=== PATIENT | female | born 1985 | race Caucasian/White ===

== ENCOUNTER 2016-11-30 16:08 | Emergency (ER) | payer MEDICAID ==
[~2016-11-30] VITALS: Ht 165.1 cm; Wt 60.0 kg
[~2016-11-30 16:08] MED LIST: CLIN1CAP5 PO; NAPR500 PO
[2016-11-30 16:09] VITALS: BP 139/82; PULSE 118; RESP 20; TEMP 99.4; O2SAT 98
[2016-11-30] MEDS ORDERED: PRED20 PO (16:21)
[2016-11-30] MEDS ORDERED: AZIT250T3 PO (16:21)
--- NOTE | 2016-11-30 16:26 | PD ---
HPI Chief Complaint: ENT Complaint Time Seen by Provider: 16:16 Travel History International Travel<30 days: No Contact w/Intl Traveler<30days: No Traveled to known affect area: No History of Present Illness HPI 31-year-old female presents emergency Department with several day history of upper respiratory type symptoms including headache, scratchy throat, and now loss of voice and cough with upper airway chest tightness. Patient states moderate cough but nonproductive. She denies history of wheezing or need for inhalers in the past. She states her daughter is sick with a cold as well, who may have given it to her. Throat does not really hurt but she cannot speak due to her loss of voice. He denies nausea, vomiting, or other constitutional symptoms. Vital signs show temperature of 99.8 orally. PFSH Past Medical History Depression: Yes Diminished Hearing: No ?: Not : 4 Para: 2 : 2 Social History Alcohol Use: Yes (SOCIALLY) Tobacco Use: Yes (5-6 CIGARETTES PER DAY) Substance Use: No Allergies-Medications (Allergen,Severity, Reaction): Coded Allergies: No Known Allergies (Verified , 11/30/16) Reported Meds & Prescriptions Reported Meds & Active Scripts Active Prednisone 20 Mg Tab 20 Mg PO DAILY 5 Days Azithromycin 250 Mg Tab 250 Mg PO DIRECTED Take 2 tabs (500 mg) on day 1 then 1 tab daily x 4 days. Clindamycin Hcl (Clindamycin HCl) 150 Mg Cap 2 Capl PO Q6HR 10 Days Naprosyn (Naproxen) 500 Mg Tab 500 Mg PO Q12HR PRN Review of Systems Except as stated in HPI: all other systems reviewed are Neg General / Constitutional: Positive: Fever, Chills Eyes: No: Visual changes HENT: Positive: Headaches, Sore Throat, Rhinitis (hoarseness), Rhinorrhea, Congestion, No: Vertigo, Lightheadedness, Nosebleed, Neck Stiffness, Neck Pain, Earache Cardiovascular: No: Chest Pain or Discomfort Respiratory: Positive: Cough, No: Shortness of Breath, Wheezing, Sneezing Gastrointestinal: No: Nausea, Vomiting, Diarrhea, Abdominal Pain Genitourinary: No: Dysuria Musculoskeletal: No: Pain Skin: No Rash Neurologic: No: Weakness Psychiatric: No: Depression Endocrine: No: Polydipsia Hematologic/Lymphatic: No: Easy Bruising Physical Exam Narrative GENERAL: Patient appears in no acute distress. SKIN: Warm and dry. Normal color. Normal turgor. No rash. HEAD: Atraumatic. Normocephalic. EYES: Pupils equal and round. No scleral icterus. No injection or drainage. ENT: No nasal bleeding or discharge. Mucous membranes pink and moist. TMs are clear bilaterally. Patient is clear rhinitis. Posterior pharynx appears somewhat injected with cobblestoning but without significant tonsillitis or exudate. Patient is extremely hoarse. NECK: Trachea midline. Supple nontender without significant lymphadenopathy. CARDIOVASCULAR: Regular rate and rhythm. RESPIRATORY: No accessory muscle use. Completely Clear to auscultation. Breath sounds equal bilaterally. MUSCULOSKELETAL: Extremities without clubbing, cyanosis, or edema. No obvious deformities. NEUROLOGICAL: Awake and alert. No obvious cranial nerve deficits. Motor grossly within normal limits. Five out of 5 muscle strength in the arms and legs. Normal speech. PSYCHIATRIC: Appropriate mood and affect; insight and judgment normal. Data Data Last Documented VS Vital Signs Date Time Temp Pulse Resp B/P (MAP) Pulse Ox O2 Delivery O2 Flow Rate FiO2 11/30/16 16:09 99.4 118 20 139/82 (101) 98 Room Air Orders Orders Ed Discharge Order (11/30/16 16:27) MDM Medical Decision Making Medical Screen Exam Complete: Yes Emergency Medical Condition: Yes Differential Diagnosis Upper respiratory infection. Bronchitis. Laryngitis. Pharyngitis. Narrative Course Patient is medically stable at time of exam. Patient will be treated with azithromycin 250 mg tabs, as directed. #6. Patient also given prednisone 20 mg daily for the next 5 days. Patient is encouraged to rest her voice, use ice chips, lots of fluids, and cough medicine of choice. Work note is given for tomorrow. Patient should follow up if symptoms do not improve or worsen next week. Diagnosis Primary Impression: Laryngitis, acute Additional Impression: Bronchitis Referrals: [facility] Primary Care Physician Patient Instructions: General Instructions, Laryngitis (ED) Additional Instructions: Patient will be treated with azithromycin 250 mg tabs, as directed. #6. Patient also given prednisone 20 mg daily for the next 5 days. Patient is encouraged to rest her voice, use ice chips, lots of fluids, and cough medicine of choice. Work note is given for tomorrow. Patient should follow up if symptoms do not improve or worsen next week. Med/Other Pt SpecificInfo: Prescription(s) given Scripts Prednisone (Prednisone) 20 Mg Tab 20 MG PO DAILY for 5 Days, #5 TAB 0 Refills Prov: Camilo Light MD 11/30/16 Azithromycin (Azithromycin) 250 Mg Tab 250 MG PO DIRECTED for Infection, #6 TAB 0 Refills Take 2 tabs (500 mg) on day 1 then 1 tab daily x 4 days. Prov: Camilo Light MD 11/30/16 Disposition: 01 DISCHARGE HOME Condition: Stable Austen Ding Nov 30, 2016 16:26
== END 2016-11-30 16:58 | disposition home or self-care (01) ==
LOC: NEPK 16:08
DX: J04.0 Acute laryngitis (principal); J40 Bronchitis, not specified as acute or chronic; R51 Headache; F32.9 Major depressive disorder, single episode, unspecified; F17.210 Nicotine dependence, cigarettes, uncomplicated; Z79.899 Other long term (current) drug therapy
CPT/HCPCS: 99284